=== PATIENT | female | born 1990 | race African-American/Black ===

== ENCOUNTER 2021-01-28 20:05 | Emergency (ER) | payer MEDICAID ==
[~2021-01-28] VITALS: Ht 160 cm; Wt 75.0 kg
[2021-01-28] MEDS ORDERED: CEFTRIAXONE 1,000 MG IM ONE (20:30)
[2021-01-28 20:46] LABS: MICROSCOPIC AUTO
--- NOTE | 2021-01-28 20:49 | NUR ---
rn gynecology: Pt ambulatory to room from lobby at this time.
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
[2021-01-28] MEDS ORDERED: CEFTRIAXONE 1,000 MG ONE (21:42)
[2021-01-28] MEDS ORDERED: DOXYCYCLINE 100MG TABLET ONE (21:43)
[2021-01-28 21:49] LABS: CLUE CELLS NONE SEEN (NONE SEEN); WET PREP WBCS FEW (FEW)
[2021-01-28] MEDS ORDERED: ACYCLOVIR 400 MG TABLET PO ONE (22:00)
[2021-01-28] MEDS ORDERED: LIDOCAINE GEL 2%, 5ML TP ONE (22:00)
[2021-01-28] MEDS ORDERED: DOXYCYCLINE 100MG TABLET PO ONE (22:00)
[2021-01-28 22:11] VITALS: BP 132/90
--- NOTE | 2021-01-28 22:17 | NUR ---
Patient given discharge instructions and they have confirmed that they understand the instructions. Patient ambulatory with steady gait.
== END 2021-01-28 22:20 | disposition home or self-care (01) ==
LOC: ED 20:35
DX: A60.04 Herpesviral vulvovaginitis (principal); N89.8 Other specified noninflammatory disorders of vagina; A64 Unspecified sexually transmitted disease
CPT/HCPCS: 81001; 87086; 87210; 87491; 87591; 87808; 96372; 99283; J0696; 99284

== ENCOUNTER 2021-04-15 09:05 | Emergency (ER) | payer MEDICAID ==
[~2021-04-15] VITALS: Ht 160 cm; Wt 77.3 kg
--- NOTE | 2021-04-15 12:31 | NUR ---
FINANCIAL RECRUITER: PT BACK TO ROOM FROM LOBBY
--- NOTE | 2021-04-15 12:44 | NUR ---
BIBI RN: APPLIED MONITORS ON PT, IV STARTED, LABS DRAWN, WARM BLANKETS AND CALL LIGHT IN PLACE, PT INSTRUCTED ON POC AND DR STEPHENSON TO BS. SIDE RAILS UP.
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
[2021-04-15] MEDS ORDERED: SODIUM CHLORIDE FLUSH 10ML SYR IVF ONE (13:00)
[2021-04-15] MEDS ORDERED: SODIUM CHLORIDE 0.9% 1,000ML IVBOLUS ONE (13:00)
[2021-04-15 13:14] LABS: BASOPHILS % (AUTO) 1 % (0-1); EOSINOPHILS % (AUTO) 4 % (1-7); LYMPHOCYTES % (AUTO) 30 % (22-44); MEAN CORPUSCULAR HEMOGLOBIN 25.4 pg (27.0-34.8); MEAN CORPUSCULAR HGB CONC 33.8 g/dL (32.4-35.8); MEAN PLATELET VOLUME 7.9 fL (7.4-10.4); MONOCYTES % (AUTO) 8 % (2-9); NEUTROPHILS % (AUTO) 58 % (42-75); PLATELET COUNT 290 x10^3/uL (130-400); RED CELL DISTRIBUTION WIDTH 16.8 % (9.6-15.2)
[2021-04-15 13:15] LABS: ALBUMIN 3.6 g/dL (3.4-5.0); ANION GAP 6 mmol/L (5-15); CALCIUM 8.8 mg/dL (8.5-10.1); CHLORIDE 106 mmol/L (98-107); CREATININE 0.68 mg/dL (0.55-1.02)
--- NOTE | 2021-04-15 13:26 | NUR ---
us at bedside 1l ns started cc ua sent for analysis patient agreeable to vaccine-erp to place moderna order
[2021-04-15] MEDS ORDERED: KETOROLAC 30 MG/1 ML ONE (13:27)
[2021-04-15] MEDS ORDERED: KETOROLAC 30 MG/1 ML IVPush ONE (13:30)
[2021-04-15] MEDS ORDERED: COVID-19 VACC,MRNA(MODERNA)/PF 100 MCG/0.5ML IM-VACC ONE ×2 (14:00)
[2021-04-15 14:08] LABS: MICROSCOPIC INDICATED
[2021-04-15 15:05] VITALS: BP 125/79
== END 2021-04-15 15:34 | disposition home or self-care (01) ==
LOC: ED 15:00
DX: N93.9 Abnormal uterine and vaginal bleeding, unspecified (principal); M54.9 Dorsalgia, unspecified; Z23 Encounter for immunization
CPT/HCPCS: 0011A; 36415; 76830; 80048; 81001; 82040; 84702; 85025; 86901; 87086; 91301; 96361; 96374; 99284; J1885; J7030